=== PATIENT | male | born 1960 | race Caucasian/White ===

== ENCOUNTER → 2021-06-04 | Outpatient (CLI) | payer OTHER ==
--- NOTE | 2021-06-08 17:12 | MR ---
EXAMINATION TYPE: MR lumbar spine wo con DATE OF EXAM: 06/08/2021 COMPARISON: Prior lumbar MRI 09/18/2019 HISTORY: Low back Pain and Left Leg Numbness. Prior Surg 10/2019 TECHNIQUE: Multiplanar, multisequence images of the lumbar spine were acquired without IV contrast. L1-L2: Normal disc appearance without desiccation. No herniation, protrusion or disc bulging. No ca nal stenosis is present. Foramina are patent bilaterally. L2-L3: Normal disc appearance without desiccation. No herniation, protrusion or disc bulging. No ca nal stenosis is present. Foramina are patent bilaterally. L3-L4: Normal disc appearance without desiccation. No herniation, protrusion or disc bulging. No ca nal stenosis is present. Foramina are patent bilaterally. L4-L5: Posterior central disc herniation is again noted contacting and deforming the anterior thecal sac. Facet arthropathy changes present. There is some encroachment on the lateral recess greater on t he left. Listhesis contributes facet the circumferential extension endplate disc complex encroaches u gopal the inferior aspect of the foramina. L5-S1: Left lateral posterior disc herniation is present extending into the inferior margin of the ne ural foramen, there is mass effect on the left S1 nerve root, abnormal soft tissue seen in the latera l recess. The left S1 nerve root appears enlarged as compared to the right. Facet arthropathy changes present with a synovial cyst present causing lateral mass effect on the thecal sac. Circumferential extension endplate disc complex encroaches upon the left neural foramen greater than right. Lumbar segments show postop change status post laminectomies at L5. No paraspinal masses are identif ied. Conus medullaris has a normal appearance. There is minimal anterolisthesis grade 1 L4-5. No sig nificant spinal stenosis. Lumbar vertebral bodies show preserved height. Loss of disc height signal i s present at L4-5 and L5-S1 consistent with disc desiccation and degenerative disc disease, there is some minimal endplate discogenic marrow signal changes are IMPRESSION: Degenerative disc disease, postop changes as described with facet arthropathy, foraminal encroachment . There may be granulation tissue, recurrent disc herniation laterally at L5-S1, postcontrast images at this level may be of benefit. Additional findings above.
== END | disposition home or self-care (01) ==
LOC: RADMRIMAIN 07:53
PROVIDERS: ATTEND Family Medicine
DX: M51.36 Other intervertebral disc degeneration, lumbar region (principal); M46.96 Unspecified inflammatory spondylopathy, lumbar region
CPT/HCPCS: 72148

== ENCOUNTER → 2023-06-17 | Outpatient (CLI) | payer MEDICARE ==
--- NOTE | 2023-06-19 14:19 | US ---
EXAMINATION TYPE: US scrotum with doppler. TECHNIQUE: Grayscale and color Doppler Duplex imaging performed of the scrotum. DATE OF EXAM: 06/17/2023 COMPARISON: NONE CLINICAL INDICATION: Male, 63 years old with history of N50.812 LEFT TESTICLE PAIN; Pt states right g roin pain since 2019 after back surgery. Denies swelling EXAM MEASUREMENTS: TESTICLES: Right Testicle: 3.4 x 1.5 x 2.7 cm Left Testicle: 3.4 x 1.4 x 2.8 cm EPIDIDYMIS HEAD: Right Epididymis: 1.1 cm Hypoechoic lesion right epi head= 0.6 x 0.4 x 0.5 cm Left Epididymis: 0.9 cm Doppler performed to assess for testicular vascularity; good bilateral color flow and waveforms are s een. There is no evidence of testicular torsion. Presence of hydroceles: Trace on both sides. Presence of varicoceles: No Right groin scanned in area of pt's pain with valsalva maneuver- no abnormality could be appreciate d to account for pt's symptoms IMPRESSION: 1. Targeted scanning of the right groin area at the site of patient's pain shows no discrete sonograp hic abnormality. 2. A tiny 6 mm hypoechoic lesion of the right epididymal head could represent a debris-filled cyst. C onsider follow-up ultrasound in 2-3 months to reassess. 3. No sonographic evidence for testicular torsion or epididymoorchitis.
== END | disposition home or self-care (01) ==
LOC: RADUSWWP 16:09
PROVIDERS: ATTEND Student in an Organized Health Care Education/Training Program
DX: N50.812 Left testicular pain (principal)
CPT/HCPCS: 76870; 93975

== ENCOUNTER 2023-08-10 06:04 | Day surgery (SDC) | payer MEDICARE ==
[~2023-08-10 06:04] MED LIST: LIDOCAINE 1% (10MG/ML) FOR IV START INTRADERMA PRN
[2023-08-10] MEDS: LACTATED RINGERS 1,000 ML IV SCH (06:43)
[2023-08-10] MEDS ORDERED: LIDOCAINE 1% INJ 10MG/ML (20 ML MDV) ONE (06:55)
[2023-08-10] MEDS ORDERED: PROPOFOL 10 MG/ML 20 ML VIAL IV ONE (06:55)
[2023-08-10 07:18] VITALS: TEMP 97.7
--- NOTE | 2023-08-10 07:21 | P.PCN ---
Date of Procedure: 08/10/23 Procedure(s) Performed: BRIEF HISTORY: Patient is a 63-year-old pleasant white male scheduled for an elective colonoscopy as a part of screening for colon cancer. PROCEDURE PERFORMED: Colonoscopy. PREOPERATIVE DIAGNOSIS: Screening for colon cancer. IV sedation per Anesthesia. PROCEDURE: After informed consent was obtained, the patient, was brought into the endoscopy unit. IV sedation was administered by Anesthesia under continuous monitoring. Digital rectal examination was normal. Initially the Olympus CF-160 flexible video colonoscope was then inserted in the rectum, gradually advanced into the cecum without any difficulty. Careful examination was performed as the scope was gradually being withdrawn. Ileocecal valve and the appendiceal orifice were visualized and appeared normal. Prep was excellent. Mucosa of the cecum, ascending colon, transverse colon, descending colon, sigmoid colon, and rectum appeared normal. Retroflexion was performed in the rectum and no lesions were seen. The patient tolerated the procedure well. IMPRESSION: Normal-appearing colon from rectum to cecum with no evidence of colorectal neoplasia. RECOMMENDATIONS: Findings of this examination were discussed with the patient as well as his family. He was advised to have repeat screening colonoscopy in 10 years..
[2023-08-10 08:08] VITALS: BP 114/69; PULSE 66; RESP 18
== END 2023-08-10 07:55 | disposition home or self-care (01) ==
LOC: ORWHC2ENDO 06:04
PROVIDERS: ATTEND Internal Medicine Gastroenterology
DX: Z12.11 Encounter for screening for malignant neoplasm of colon (principal); I10 Essential (primary) hypertension; E78.5 Hyperlipidemia, unspecified; G47.33 Obstructive sleep apnea (adult) (pediatric); F41.9 Anxiety disorder, unspecified; K21.9 Gastro-esophageal reflux disease without esophagitis; Z79.899 Other long term (current) drug therapy
CPT/HCPCS: J2001; J2704; G0121; 45378